=== PATIENT | male | born 1950 | race American Indian/Alaskan Native ===

== ENCOUNTER 2020-02-12 19:49 | Emergency (ER) | payer MEDICARE ==
[2020-02-12 20:40] LABS: Basophils % (Auto) 0.5 % (0.0-1.8); Eosinophils # (Auto) 0.3 K/mm3 (0.0-0.4); Eosinophils % (Auto) 3.4 % (0.0-4.3); Hematocrit 44.1 % (35.5-45.6); Hemoglobin 15.1 gm/dl (11.8-15.2); Lymphocytes # (Auto) 4.2 K/mm3 (1.2-5.4); Lymphocytes % (Auto) 48.5 % (13.4-35.0); Mean Corpuscular HGB Conc 34 % (32-34); Mean Corpuscular Volume 95 fl (84-94); Monocytes # (Auto) 0.8 K/mm3 (0.0-0.8); Monocytes % (Auto) 8.7 % (0.0-7.3); Platelet Count 266 K/mm3 (140-440); Red Blood Count 4.65 M/mm3 (3.65-5.03); Red Cell Distribution Width 13.6 % (13.2-15.2)
[2020-02-12 20:45] LABS: Albumin 4.7 g/dL (3.9-5); Calcium 10.8 mg/dL (8.4-10.2)
[2020-02-12] MEDS ORDERED: DICYCLOMINE 20 MG/2 ML INJ IM ONE (20:58)
[2020-02-12] MEDS ORDERED: ONDANSETRON 4 MG/2 ML INJ IV ONE (20:58)
[2020-02-12] MEDS ORDERED: KETOROLAC 30 MG/1 ML INJ IV ONE (20:58)
--- NOTE | 2020-02-12 21:39 | Cat Scan Report ---
CT ABDOMEN AND PELVIS WITHOUT CONTRAST INDICATION / CLINICAL INFORMATION: abd pain recent prostate surg. TECHNIQUE: Axial CT images were obtained through the abdomen and pelvis without IV contrast. All CT scans at is location are performed using CT dose reduction for ALARA by means of automated exposure control. COMPARISON: CT abdomen/pelvis dated 12/25/2017. FINDINGS: LOWER CHEST: No significant abnormality. LIVER: No significant abnormality. GALLBLADDER: No significant abnormality. BILE DUCTS: No significant abnormality. PANCREAS: No significant abnormality. SPLEEN: No significant abnormality. ADRENALS: No significant abnormality. RIGHT KIDNEY / URETER: No significant abnormality. LEFT KIDNEY / URETER: No significant abnormality. STOMACH / SMALL BOWEL: No significant abnormality. COLON: Moderate to large colonic stool burden within the ascending and transverse colon. APPENDIX: No significant abnormality. PERITONEUM: No free fluid. No free air. No fluid collection. LYMPH NODES: No significant adenopathy. AORTA / ARTERIES: Moderate atherosclerotic calcification without acute abnormality. IVC / VEINS: No significant abnormality. URINARY BLADDER: Mild urinary bladder wall thickening may be related to bladder outlet obstruction in the setting of prostatomegaly. REPRODUCTIVE ORGANS: Prostatomegaly. ADDITIONAL FINDINGS: None. SKELETAL SYSTEM: Moderate degenerative disc disease at L5-S1. No acute osseous abnormality or destruc tive osseous lesion. IMPRESSION: 1. No acute abdominopelvic abnormality. 2. Moderate to large colonic stool burden within the ascending and transverse colon. 3. Circumferential urinary bladder wall thickening in the setting of prostatomegaly is likely related to chronic bladder outlet obstruction. Cystitis is considered less likely. Signer Name: Aiden Aquino MD Signed: 02/12/2020 9:35 PM Workstation Name: [id number]
--- NOTE | 2020-02-12 23:40 | Emergency Department Report ---
ED Abdominal Pain HPI - General Chief Complaint: Abdominal Pain Stated Complaint: ABD PAIN Time Seen by Provider: 02/12/20 20:58 Source: patient Mode of arrival: Ambulatory Limitations: No Limitations - History of Present Illness Initial Comments: Patient is a 69-year-old F [place] male who is 3 days status post prostate biopsy. Patient is on antibiotics and pain management. Patient also has not had a bowel movement in several days. Patient is complaining of intermittent colicky pain in his abdomen. He states he feels like his muscles of his abdomen are tightening. He is passing flatus. He states after eating a few bites of food feels extremely full. He denies fevers chills nausea vomiting. Patient had some hematuria initially after the prostate surgery but his urine was clear and flowing well yesterday. States he does feel as though he is having to strain today to pass urine. States he does not have full sensation in the suprapubic region. Severity scale (0 -10): 8 - Related Data Previous Rx's Medication Instructions Recorded Last Taken Type Baclofen 20 mg PO TID #60 tab 07/11/13 Unknown Rx HYDROcodone/APAP 5-325 [[place] 1 each PO BID PRN #14 tablet 02/15/16 Unknown Rx 5-325 mg TAB] Nystatin Cream [Mycostatin Cream] 1 applic TP BID #1 tube 02/15/16 Unknown Rx predniSONE [Deltasone] 10 mg PO QDAY #7 tab 02/15/16 Unknown Rx Naproxen [Naprosyn] 375 mg PO BID #14 tablet 12/26/19 Unknown Rx Quetiapine Fumarate [SEROquel] 50 mg PO QHS #14 tab 12/26/19 Unknown Rx Dicyclomine [Bentyl] 20 mg PO QID #14 tablet 02/12/20 Unknown Rx Docusate Sodium [Colace] 100 mg PO BID PRN #30 capsule 02/12/20 Unknown Rx Polyethylene Glycol 3350 [Miralax] 17 gm PO DAILY PRN #119 powder 02/12/20 Unknown Rx Allergies Allergy/AdvReac Type Severity Reaction Status Date / Time ibuprofen [From Motrin] AdvReac Nausea Verified 04/07/13 21:43 ED Review of Systems ROS: Stated complaint: ABD PAIN Other details as noted in HPI Comment: All other systems reviewed and negative ED Past Medical Hx - Past Medical History Previous Medical History?: Yes Hx Arthritis: Yes (Rhuematoid) Additional medical history: Hep. C and B - Surgical History Past Surgical History?: Yes Additional Surgical History: Right knee arthroscopy, prostate sx - Social History Smoking Status: Current Every Day Smoker Substance Use Type: Marijuana - Medications Home Medications: Home Medications Medication Instructions Recorded Confirmed Last Taken Type Baclofen 20 mg PO TID #60 tab 07/11/13 Unknown Rx HYDROcodone/APAP 5-325 [[place] 1 each PO BID PRN #14 tablet 02/15/16 Unknown Rx 5-325 mg TAB] Nystatin Cream [Mycostatin Cream] 1 applic TP BID #1 tube 02/15/16 Unknown Rx predniSONE [Deltasone] 10 mg PO QDAY #7 tab 02/15/16 Unknown Rx Naproxen [Naprosyn] 375 mg PO BID #14 tablet 12/26/19 Unknown Rx Quetiapine Fumarate [SEROquel] 50 mg PO QHS #14 tab 12/26/19 Unknown Rx Dicyclomine [Bentyl] 20 mg PO QID #14 tablet 02/12/20 Unknown Rx Docusate Sodium [Colace] 100 mg PO BID PRN #30 capsule 02/12/20 Unknown Rx Polyethylene Glycol 3350 [Miralax] 17 gm PO DAILY PRN #119 powder 02/12/20 Unknown Rx ED Physical Exam - General Limitations: No Limitations General appearance: alert, in no apparent distress - Head Head exam: Present: atraumatic, normocephalic - Eye Eye exam: Present: normal appearance, PERRL, EOMI - ENT ENT exam: Present: normal orophraynx, mucous membranes moist - Neck Neck exam: Present: normal inspection - Respiratory Respiratory exam: Present: normal lung sounds bilaterally. Absent: respiratory distress, wheezes, rales, rhonchi - Cardiovascular Cardiovascular Exam: Present: regular rate, normal rhythm, normal heart sounds. Absent: systolic murmur, diastolic murmur, rubs, gallop - GI/Abdominal GI/Abdominal exam: Present: soft, tenderness (generalized mild), normal bowel sounds. Absent: distended, guarding, rebound, rigid - Rectal Rectal exam: Present: deferred - Extremities Exam Extremities exam: Present: normal inspection - Back Exam Back exam: Present: normal inspection - Neurological Exam Neurological exam: Present: alert, oriented X3 - Psychiatric Psychiatric exam: Present: normal affect, normal mood - Skin Skin exam: Present: warm, dry, intact, normal color. Absent: rash ED Course Vital Signs 02/12/20 02/12/20 19:57 22:04 Temperature 97.4 F L Pulse Rate 73 Respiratory 30 H 18 Rate Blood Pressure 132/82 O2 Sat by Pulse 96 Oximetry ED Medical Decision Making - Lab Data Result diagrams: 02/12/20 20:06 02/12/20 20:06 Lab Results 02/12/20 02/12/20 02/12/20 Range/Units 20:06 20:06 20:06 WBC 8.7 (4.5-11.0) K/mm3 RBC 4.65 (3.65-5.03) M/mm3 Hgb 15.1 (11.8-15.2) gm/dl Hct 44.1 (35.5-45.6) % MCV 95 H (84-94) fl MCH 33 H (28-32) pg MCHC 34 (32-34) % RDW 13.6 (13.2-15.2) % Plt Count 266 (140-440) K/mm3 Lymph % (Auto) 48.5 H (13.4-35.0) % [place] % (Auto) 8.7 H (0.0-7.3) % Eos % (Auto) 3.4 (0.0-4.3) % Baso % (Auto) 0.5 (0.0-1.8) % Lymph # 4.2 (1.2-5.4) K/mm3 [place] # 0.8 (0.0-0.8) K/mm3 Eos # 0.3 (0.0-0.4) K/mm3 Baso # 0.0 (0.0-0.1) K/mm3 Seg Neutrophils % 38.9 L (40.0-70.0) % Seg Neutrophils # 3.4 (1.8-7.7) K/mm3 Sodium 135 L (137-145) mmol/L Potassium 4.1 (3.6-5.0) mmol/L Chloride 95.2 L (98-107) mmol/L Carbon Dioxide 22 (22-30) mmol/L Anion Gap 22 mmol/L BUN 19 (9-20) mg/dL Creatinine 1.5 H (0.8-1.3) mg/dL Estimated GFR 56 ml/min BUN/Creatinine Ratio 13 % Glucose 113 H (75-100) mg/dL Calcium 10.8 H (8.4-10.2) mg/dL Total Bilirubin 0.50 (0.1-1.2) mg/dL AST 29 (5-40) units/L ALT 22 (7-56) units/L Alkaline Phosphatase 156 H (35-129) units/L Total Protein 8.1 (6.3-8.2) g/dL Albumin 4.7 (3.9-5) g/dL Albumin/Globulin Ratio 1.4 % Lipase 58 (13-60) units/L - Medical Decision Making Patient's pain is intermittent. CT shows evidence of constipation. He does have some inflammatory changes around the bladder. Patient is on antibiotics. There is not appear to be any obstructive signs. Patient does state that he does not have a sensation he has a urinate. States that he is trying to strain to urine but does not want to secondary to causing pain with his upper abdomen. Patient also states he does not want to strain because of the recent surgery. Patient was offered a Limon catheter to keep his urine pathways clear but he refused. Told the patient if by the morning he still was unable to pass urine he would need to come back for Limon catheter placement. Patient placed on Colace MiraLAX and will also be given some Bentyl for the crampy intermittent pain that he is having and will be discharged home. Critical care attestation.: If time is entered above; I have spent that time in minutes in the direct care of this critically ill patient, excluding procedure time. ED Disposition Clinical Impression: Constipation Qualifiers: Constipation type: outlet dysfunction constipation Qualified Code(s): K59.02 - Outlet dysfunction constipation Abdominal pain Qualifiers: Abdominal location: generalized Qualified Code(s): R10.84 - Generalized abdominal pain Disposition: DC-01 TO HOME OR SELFCARE Is pt being admited?: No Does the pt Need Aspirin: No Condition: Stable Instructions: Constipation (ED), High Fiber Diet (ED) Referrals: PRIMARY CARE, [Primary Care Provider] - 3-5 Days Time of Disposition: 23:41
[2020-02-13 02:05] VITALS: BP 140/80
== END 2020-02-13 00:18 | disposition home or self-care (01) ==
LOC: ED 19:49
DX: K59.00 Constipation, unspecified (principal); R10.9 Unspecified abdominal pain; M19.91 Primary osteoarthritis, unspecified site; F17.200 Nicotine dependence, unspecified, uncomplicated; F12.10 Cannabis abuse, uncomplicated; Z98.890 Other specified postprocedural states; Z79.899 Other long term (current) drug therapy; Z88.8 Allergy status to other drugs, medicaments and biological substances
CPT/HCPCS: 36415; 74176; 80053; 83690; 85025; 96372; 96374; 96375; 99284; J0500; J1885; J2405

== ENCOUNTER 2021-01-29 12:22 | Emergency (ER) | payer MEDICARE ==
[2021-01-29] MEDS ORDERED: HYDROcodone/ACETAMINOPHEN 10-325MG TAB PO ONE ×2 (15:32→16:00)
[2021-01-29] MEDS ORDERED: TETANUS,DIPH,PERTUSS(ACELL) VACCINE 0.5 ML SYRINGE IM ONE (15:32)
[2021-01-29] MEDS ORDERED: RABIES IMMUNE GLOBULIN P/F 300 UNIT/ML INJ 5 ML IM ONE (16:00)
[2021-01-29] MEDS: RABIES VACCINE, HUMAN DIPLOID/PF 2.5 UNIT/ML VIAL IM ONE ×2 (16:02→16:04)
--- NOTE | 2021-01-29 16:03 | XRay Report ---
RIGHT TIBIA-FIBULA 2 VIEW(S) INDICATION / CLINICAL INFORMATION: lac s/p dog bite COMPARISON: None available. FINDINGS: BONES / JOINT(S): No acute fracture or subluxation. Severe tricompartmental osteoarthrosis of the rig ht knee. SOFT TISSUES: No significant abnormality. ADDITIONAL FINDINGS: Vascular calcification Signer Name: Balbir Grace MD Signed: 01/29/2021 3:59 PM Workstation Name: [id number]
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
[2021-01-29 17:02] VITALS: BP 157/78
== END 2021-01-29 17:01 | disposition home or self-care (01) ==
LOC: ED 12:22
DX: S81.811A Laceration without foreign body, right lower leg, initial encounter (principal); M19.90 Unspecified osteoarthritis, unspecified site; F17.200 Nicotine dependence, unspecified, uncomplicated; F12.90 Cannabis use, unspecified, uncomplicated; Z79.899 Other long term (current) drug therapy; W54.0XXA Bitten by dog, initial encounter; Y93.89 Activity, other specified; Y92.89 Other specified places as the place of occurrence of the external cause; Y99.8 Other external cause status; Z88.6 Allergy status to analgesic agent
CPT/HCPCS: 90375; 90471; 90472; 90675; 90715; 96372; 99283

== ENCOUNTER 2021-02-16 18:31 | Emergency (ER) | payer MEDICARE ==
[2021-02-16 20:12] VITALS: BP 160/70
[2021-02-16] MEDS ORDERED: AMOXICILLIN/K CLAV 875/125MG TAB PO ONE (20:28)
[2021-02-16] MEDS ORDERED: ACETAMINOPHEN 500 MG TAB PO ONE (20:28)
--- NOTE | 2021-02-16 20:33 | Emergency Department Report ---
ED General Adult HPI - General Chief complaint: Animal Bite Stated complaint: DOG BITE Time Seen by Provider: 02/16/21 20:28 Source: patient Mode of arrival: Ambulatory Limitations: No Limitations - History of Present Illness Initial comments: Patient 70-year-old -[place] male who presents for right lower leg pain and swelling times 3 weeks patient states status post dog bite 3 weeks ago. She received tetanus shot has received all rabies shots, however states he only took 1 dose of Augmentin at home. Now with mild cellulitis to the right lower leg. There is no fever, chills. No nausea or vomiting. No calf tenderness no dorsiflexion pain, no numbness tingling.. Patient remains amatory with steady gait to baseline per patient. States he went to urgent care urgent care advised to present to ED for evaluation. Patient denies other complaints. Severity scale (0 -10): 7 - Related Data Previous Rx's Medication Instructions Recorded Last Taken Type Baclofen 20 mg PO TID #60 tab 07/11/13 Unknown Rx HYDROcodone/APAP 5-325 [[place] 1 each PO BID PRN #14 tablet 02/15/16 Unknown Rx 5-325 mg TAB] Nystatin Cream [Mycostatin Cream] 1 applic TP BID #1 tube 02/15/16 Unknown Rx predniSONE [Deltasone] 10 mg PO QDAY #7 tab 02/15/16 Unknown Rx Naproxen [Naprosyn] 375 mg PO BID #14 tablet 12/26/19 Unknown Rx Quetiapine Fumarate [SEROquel] 50 mg PO QHS #14 tab 12/26/19 Unknown Rx Dicyclomine [Bentyl] 20 mg PO QID #14 tablet 02/12/20 Unknown Rx Docusate Sodium [Colace] 100 mg PO BID PRN #30 capsule 02/12/20 Unknown Rx Polyethylene Glycol 3350 [Miralax] 17 gm PO DAILY PRN #119 powder 02/12/20 Unknown Rx Amoxicillin/K Clav Tab [Augmentin 1 tab PO Q12HR #20 tab 01/29/21 Unknown Rx 875 mg] Acetaminophen [Non-Aspirin Extra 500 mg PO Q6H PRN #30 tablet 02/16/21 Unknown Rx Strength] Amoxicillin/Potassium Clav 1 each PO BID 10 Days #20 tablet 02/16/21 Unknown Rx [Augmentin 875-125 Tablet] Allergies Allergy/AdvReac Type Severity Reaction Status Date / Time ibuprofen [From Motrin] AdvReac Nausea Verified 01/29/21 14:04 ED Review of Systems ROS: Stated complaint: DOG BITE Other details as noted in HPI Constitutional: denies: chills, fever Eyes: denies: eye pain, eye discharge, vision change ENT: denies: ear pain, throat pain Respiratory: denies: cough, shortness of breath, wheezing Cardiovascular: denies: chest pain, palpitations Endocrine: no symptoms reported Gastrointestinal: denies: abdominal pain, nausea, diarrhea Genitourinary: denies: urgency, dysuria Musculoskeletal: denies: back pain, joint swelling, arthralgia Skin: rash, other (Right tib fib mild erythema , wound 2x3 cm, no drainage mild exudate to center no fever ) Neurological: denies: headache, weakness, paresthesias Psychiatric: denies: anxiety, depression Hematological/Lymphatic: denies: easy bleeding, easy bruising ED Past Medical Hx - Past Medical History Previous Medical History?: Yes Hx Arthritis: Yes (Rhuematoid) Additional medical history: Hep. C and B - Surgical History Past Surgical History?: Yes Additional Surgical History: Right knee arthroscopy, prostate sx - Social History Smoking Status: Current Every Day Smoker Substance Use Type: Marijuana - Medications Home Medications: Home Medications Medication Instructions Recorded Confirmed Last Taken Type Baclofen 20 mg PO TID #60 tab 07/11/13 Unknown Rx HYDROcodone/APAP 5-325 [[place] 1 each PO BID PRN #14 tablet 02/15/16 Unknown Rx 5-325 mg TAB] Nystatin Cream [Mycostatin Cream] 1 applic TP BID #1 tube 02/15/16 Unknown Rx predniSONE [Deltasone] 10 mg PO QDAY #7 tab 02/15/16 Unknown Rx Naproxen [Naprosyn] 375 mg PO BID #14 tablet 12/26/19 Unknown Rx Quetiapine Fumarate [SEROquel] 50 mg PO QHS #14 tab 12/26/19 Unknown Rx Dicyclomine [Bentyl] 20 mg PO QID #14 tablet 02/12/20 Unknown Rx Docusate Sodium [Colace] 100 mg PO BID PRN #30 capsule 02/12/20 Unknown Rx Polyethylene Glycol 3350 [Miralax] 17 gm PO DAILY PRN #119 powder 02/12/20 Unknown Rx Amoxicillin/K Clav Tab [Augmentin 1 tab PO Q12HR #20 tab 01/29/21 Unknown Rx 875 mg] Acetaminophen [Non-Aspirin Extra 500 mg PO Q6H PRN #30 tablet 02/16/21 Unknown Rx Strength] Amoxicillin/Potassium Clav 1 each PO BID 10 Days #20 tablet 02/16/21 Unknown Rx [Augmentin 875-125 Tablet] ED Physical Exam - General Limitations: No Limitations General appearance: alert, in no apparent distress - Head Head exam: Present: atraumatic, normocephalic - Eye Eye exam: Present: normal appearance, EOMI Pupils: Present: normal accommodation - ENT ENT exam: Present: mucous membranes moist - Neck Neck exam: Present: normal inspection, full ROM. Absent: tenderness - Respiratory Respiratory exam: Present: normal lung sounds bilaterally. Absent: respiratory distress, wheezes, stridor - Cardiovascular Cardiovascular Exam: Present: regular rate, normal rhythm, normal heart sounds - GI/Abdominal GI/Abdominal exam: Present: soft, normal bowel sounds. Absent: distended, tenderness, bruit, hernia - Rectal Rectal exam: Present: deferred - Extremities Exam Extremities exam: Present: normal inspection, full ROM, normal capillary refill. Absent: calf tenderness - Expanded Lower Extremity Exam Right Lower Leg exam: Present: full ROM, swelling, erythema ( wound 2x3 inches , mild erythema, no drainage mild exudate to center no fever ). Absent: tenderness, ecchymosis, deformity, crepidus, palpable cord, Ayana's sign Foot/Toe exam: Present: normal inspection, full ROM. Absent: tenderness Neuro vascular tendon exam: Present: no vascular compromise. Absent: pulse deficit, motor deficit, sensory deficit, tendon deficit Gait: Positive: observed and normal - Back Exam Back exam: Present: normal inspection, full ROM - Neurological Exam Neurological exam: Present: alert, oriented X3, CN II-XII intact, normal gait - Psychiatric Psychiatric exam: Present: normal affect, normal mood - Skin Skin exam: Present: warm, dry, intact, normal color. Absent: rash ED Course Vital Signs 02/16/21 20:09 Temperature 98.3 F Pulse Rate 67 Respiratory 18 Rate Blood Pressure 160/70 [Right] O2 Sat by Pulse 100 Oximetry ED Medical Decision Making - Medical Decision Making This is infected dog bite with mild cellulitis, patient given Augmentin and Tylenol in the ED. Patient given wound care instructions including wash with soap and water daily, gauze dressing, take Augmentin as directed, follow-up with primary care doctor in 2 to 3 days for wound check. Patient given symptoms of infection and when to return to ED. Patient verbalized agreement and understanding with same patient will be DC'd home in stable condition at this time Critical care attestation.: If time is entered above; I have spent that time in minutes in the direct care of this critically ill patient, excluding procedure time. ED Disposition Clinical Impression: Cellulitis of right lower leg Disposition: HOME / SELF CARE / HOMELESS Is pt being admited?: No Does the pt Need Aspirin: No Condition: Stable Instructions: Cellulitis, Adult, Wound Infection, [id number], Wound Care, Adult Additional Instructions: Wash wound with soap and water daily apply gauze dressing daily as directed, follow-up with primary care doctor in 2 to 3 days for wound check. Return to emergency department for symptoms of infection. Prescriptions: Amoxicillin/Potassium Clav [Augmentin 875-125 Tablet] 1 each PO BID 10 Days #20 tablet Acetaminophen [Non-Aspirin Extra Strength] 500 mg PO Q6H PRN #30 tablet PRN Reason: pain Referrals: TEODORO SALAZAR MD [Staff Physician] - 3-5 Days Time of Disposition: 20:39
== END 2021-02-16 21:31 | disposition home or self-care (01) ==
LOC: ED 18:31
DX: L03.115 Cellulitis of right lower limb (principal); M06.9 Rheumatoid arthritis, unspecified; B19.20 Unspecified viral hepatitis C without hepatic coma; B19.10 Unspecified viral hepatitis B without hepatic coma; Z98.890 Other specified postprocedural states; F17.290 Nicotine dependence, other tobacco product, uncomplicated; Z88.6 Allergy status to analgesic agent
CPT/HCPCS: 99282